=== PATIENT | male | born 1965 ===

== ENCOUNTER 2019-09-12 06:29 | Inpatient (IN) | payer OTHER ==
[~2019-09-12] VITALS: Ht 175.3 cm; Wt 77.1 kg
[2019-09-12] VITALS (10 sets, daily range): BP systolic 130–149; BP diastolic 74–92
[~2019-09-12 06:29] MED LIST: APAP/CODEINE1 TAB PO; PRILOSEC20 MG/CAP PO
--- NOTE | 2019-09-12 13:10 | NUR ---
PT ARRIVED TO FLOOR IN STABLE CONDITION, AWAKE AND ALERT ACOMPANIED BY NURSE AND CORRECTIONAL OFFICERS X2.
--- NOTE | 2019-09-12 16:00 | NUR ---
PT TOLERATING CLEAR LIQUIDS - WATER AND GATORADE -WELL. ADVANCED TO FULL LIQUID FOR DINNER. PT DENIES DISCOMFORT AT THIS TIME
--- NOTE | 2019-09-12 19:00 | NUR ---
REPORT RECEIVED FROM NICHELLE MAHMOOD. PT RESTING IN BED. NO S/S OF DISTRESS AT THIS TIME. SAFETY PRECAUTIONS IN PLACE. X2 CUSTODY OFFICERS AT BEDSIDE. WILL CONTINUE TO MONITOR.
--- NOTE | 2019-09-12 20:15 | NUR ---
PT RESTING IN BED ALERT AND ORIENTED. RESPIRATIONS EVEN AND UNLABORED ON RA, LUNGS SOUND CLEAR. PEDAL PULSES STRONG. SCD IN PLACE. PT REPORTS PAIN OF AN 8 OUT OF 10 ACHING IN HIS SHOUILDER, PT TO BE MEDICATED PER EMAR ORDERS. CUSTODY OFFICERS AT BEDSIDE. SAFETY PRCAUTIONS IN PLACE, WILL CONTINUE TO MONITOR.
--- NOTE | 2019-09-13 02:30 | NUR ---
PT RETURNING TO BED FROM BATHROOM, GATE STEADY. PT REPORTS HAVING PAIN OF 10/10 LEFT SHOULDER. PT PROVIDED WITH ICE PACKS. SAFETY PRECAUTIONS IN PLACE. WILL CONTINUE TO MONITOR
--- NOTE | 2019-09-13 04:29 | NUR ---
PT RESTING IN BED. RESPIRATIONS EVEN AND UNLABORED ON RA. NO S/S OF DISTRESS AT THIS TIME. SAFETY PRECAUTIONS IN PLACE. WILL CONTINUE TO MONITOR.
[2019-09-13 04:41] VITALS: BP 139/79
[2019-09-13 05:00] LABS: HEMATOCRIT 40.5 % (39.0-50.0); HEMOGLOBIN 13.5 g/dl (14.0-18.0); IMMATURE GRANULOCYTES 0.4 % (0.0-5.0); MEAN CELL VOLUME 90.2 fL CALC (80.0-100.0); MEAN CORPUSCULAR HGB 30.1 pG CALC (26.0-32.0); MEAN CORPUSCULAR HGB CONC 33.3 g/L CALC (32.0-36.0); NEUT# 11.66 thou/uL (1.82-7.42); RED BLOOD COUNT 4.49 mill/uL (4.70-6.10); RED CELL DISTRI WIDTH 12.7 % (11.5-15.5)
[2019-09-13 05:25] LABS: ANION GAP 12 (6-22 (CALC)); BUN 18 mg/dL (9-20); BUN/CREATININE RATIO 20 (12-20 (CALC)); CARBON DIOXIDE 28 mmol/l (22-30); CHLORIDE 101 mmol/l (95-108); CREATININE 0.9 mg/dL (0.7-1.3); GFR > 60 ML/MIN (>=60 (CALC)); GFR FOR AFR.AMER. > 60 ML/MIN (>=60 (CALC)); POTASSIUM 4.3 mmol/l (3.5-5.1); SODIUM 136 mmol/l (137-146)
[2019-09-13 08:22] VITALS: BP 143/85
--- NOTE | 2019-09-13 08:28 | NUR ---
ASSESSMENT DONE. PT IS A&O X3. PT STATED PAIN IN LEFT SHOULDER. MEDICATED PT WITH PERCOCET SEE EMAR. REPS EVEN AND UNLABORED. REMOVED DRESSING FROM LEFT SHOULDER AND SLING PER ORDER. PT DENIES ANY OTHER NEEDS AT THIS TIME. X2 GUARDS IN ROOM. CALL LIGHT IN REACH.
[2019-09-13 10:56] VITALS: BP 127/72
--- NOTE | 2019-09-13 12:29 | NUR ---
PT STATED PAIN IN LEFT SHOULDER 07/26. MEDICATED PT WITH PERCOCET SEE EMAR. ICE PACK APPLIED TO SHOULDER. X2 GUARDS IN ROOM. CALL LIGHT IN REACH.
--- NOTE | 2019-09-13 15:07 | NUR ---
PT STATED PAIN IN LEFT SHOULDER 07/26. MEDICATED PT WITH DILAUDID SEE EMAR. ICE PACK IN PLACE IN LEFT SHOULDER. PT ABLE TO MOVE HAND BUT NOT THE ARM. PT DENIES ANY OTHER NEEDS AT THIS TIME. X2 GUARDS IN ROOM. CALL LIGHT IN REACH.
[2019-09-13 15:15] VITALS: BP 133/77
[2019-09-13 18:45] VITALS: BP 148/85
--- NOTE | 2019-09-13 19:00 | NUR ---
REPORT RECIEVED FROM NICHELLE COOPER. PT RESTING IN BED. NO S/S OF DISTRESS AT THIS TIME. SAFETY PRECAUTIONS IN PLACE. WILL CONTINUE TO MONITOR.
--- NOTE | 2019-09-13 20:10 | NUR ---
PT IN BED ALERT AND ORIENTED. RESPIRATIONS EVEN AND UNLABORED ON RA. LUNGS SOUND CLEAR. PEDAL PULSES ARE STRONG. SKINS INTACT. INCISION TO LEFT SHOULDER CDI. PT REPORTS PAIN OF A 9/10 IN HIS SHOULDER, PT TO BE MEDICATED PER EMAR ORDERS. CUSTODY OFFICERS AT BEDSIDE. SAFETY PRECAUTIONS IN PLACE. WILL CONTINUE TO MONITOR.
--- NOTE | 2019-09-13 23:20 | NUR ---
PT. MEDICATED WITH ORDERED PRN PERCOCET@[id number] FOR LEFT SHOULDER PAIN;PRIMARY NURSE TO REASSESS. COFFEE PROVIDED. NEW IV STARTED TO LHAND X2 ATTEMPT; PT. TOLERATED WELL. IV SITE TO RFA REMOVED AND CATHETER TIP INTACT.
--- NOTE | 2019-09-14 00:35 | NUR ---
PT RESTING IN BED. RESPIRATIONS EVEN AND UNLABORED ON RA. NO S/S OF DISTRESS AT THIS TIME. SAFETY PRECAUTIONS IN PLACE. WILL CONTINUE TO MONITOR.
[2019-09-14 03:33] VITALS: BP 150/86
--- NOTE | 2019-09-14 04:08 | NUR ---
PT RESTING IN BED. RESPIRATIONS EVEN AND UNLABORED ON RA. NO S/S OF DISTRESS AT THIS TIME. SAFETY PRECAUTIONS IN PLACE. WILL CONTINUE TO MONITOR.
[2019-09-14 07:06] LABS: HEMATOCRIT 39.2 % (39.0-50.0); HEMOGLOBIN 12.9 g/dl (14.0-18.0); MEAN CELL VOLUME 91.2 fL CALC (80.0-100.0); MEAN CORPUSCULAR HGB CONC 32.9 g/L CALC (32.0-36.0); RED BLOOD COUNT 4.3 mill/uL (4.70-6.10); RED CELL DISTRI WIDTH 12.8 % (11.5-15.5)
[2019-09-14 07:37] VITALS: BP 142/72
--- NOTE | 2019-09-14 07:37 | NUR ---
ASSESSMENT IS COMPLETED: IV SITE IS FREE FROM REDNESS OR EDEMA. HR IS REG,PULSES ARE STRONG X4, ABD IS SOFT WITH ACTIVE BS. LEFT ARM INCISION IS CDI. 2 GUARDS ARE AT BEDSIDE. PT INQUIRING ABOUT PAIN MEDICATION. CONTINUE TO OSBERVE AND MONITOR.,
--- NOTE | 2019-09-14 11:05 | NUR ---
NURSE JAZMÍN CALLED FROM THE FACILITY. INQUIRING IF PT IS COMING BACK TODAY. INFORMED WENT TO SEE PT AND WANTED AN ICE PACK ON HIS SHOULDER. INFORMED OF THE LAB RESULTS. MRSA CONTACT IS FINAL NO MRSA
--- NOTE | 2019-09-14 11:45 | NUR ---
DR. LEON IN TO VISIT WITH PT.
--- NOTE | 2019-09-14 12:00 | NUR ---
PT IS SITTING IN BED WITH NO DISTRESS NOTED. IV SITE IS FREE FROM REDNESS OR EDMEA.
--- NOTE | 2019-09-14 13:55 | NUR ---
LEFT ANOTHER MESSAGE FOR THE NURSE TO CALL BACK,
--- NOTE | 2019-09-14 14:00 | NUR ---
IV SITE DISCONTINUED CATHETER INTACT. NO REDNESS OR EDEMA.
--- NOTE | 2019-09-14 14:27 | NUR ---
SPOKE WITH NURSE JAZMÍN RE; PT BEING DISCHARGED. CONTINUE TO OSBERVE AND MONITOR.
--- NOTE | 2019-09-14 14:40 | NUR ---
DISCHARGE INSTRUCTIONS GIVEN AND VERBALIZED UNDERSTANDING. WANTED THE SLING BACK ON FOR THE RIDE BACK . 2 GUARDS PRESENT. Discharge instructions given. Patient verbalizes understanding of same. Discharged in stable condition via Wheelchair to *Other with *Other. All belongings sent with pt.
== END 2019-09-14 14:39 | DRG 483 ==
LOC: MS2 06:29
PROVIDERS: Internal Medicine; Nurse Practitioner Family; ADMIT Orthopaedic Surgery; ATTEND Orthopaedic Surgery
PROC: 0RRK00Z Replacement of Left Shoulder Joint with Reverse Ball and Socket Synthetic Substitute, Open Approach (ICD-10-PCS; principal; 2019-09-12)
PROC: 0LS40ZZ Reposition Left Upper Arm Tendon, Open Approach (ICD-10-PCS; 2019-09-12)
PROC: 3E0T3BZ Introduction of Anesthetic Agent into Peripheral Nerves and Plexi, Percutaneous Approach (ICD-10-PCS; 2019-09-12)
DX: M19.012 Primary osteoarthritis, left shoulder (principal); M75.112 Incomplete rotator cuff tear or rupture of left shoulder, not specified as traumatic; S46.212A Strain of muscle, fascia and tendon of other parts of biceps, left arm, initial encounter; X58.XXXA Exposure to other specified factors, initial encounter; Z87.891 Personal history of nicotine dependence
CPT/HCPCS: J0131

== ENCOUNTER 2020-07-14 22:09 | Emergency (ER) | payer OTHER ==
[~2020-07-14] VITALS: Ht 175.3 cm; Wt 70.5 kg
[2020-07-14 23:23] LABS: IMMATURE GRANULOCYTES 0.4 % (0.0-5.0); MEAN CELL VOLUME 88.7 fL CALC (80.0-100.0); MEAN CORPUSCULAR HGB 29.1 pG CALC (26.0-32.0); MEAN CORPUSCULAR HGB CONC 32.8 g/dL CAL (32.0-36.0); NEUT# 15.13 thou/uL (1.82-7.42); RED BLOOD COUNT 5.22 mill/uL (4.70-6.10); RED CELL DISTRI WIDTH 12.9 % (11.5-15.5)
[2020-07-14 23:38] LABS: HEMATOCRIT 46.3 % (39.0-50.0); HEMOGLOBIN 15.2 g/dl (14.0-18.0)
[2020-07-14 23:44] LABS: URINE BILIRUBIN - DIPSTICK NEGATIVE (NEGATIVE); URINE BLOOD DIPSTICK NEGATIVE (NEGATIVE); URINE COLOR YELLOW; URINE GLUCOSE - DIPSTICK NEGATIVE (NEGATIVE); URINE KETONE NEGATIVE (NEGATIVE); URINE LEUK ESTERASE NEGATIVE (NEGATIVE); URINE NITRITE - DIPSTICK NEGATIVE (Negative); URINE PH 7.5 (4.5-8.0); URINE PROTEIN - DIPSTICK TRACE mg/dL (NEG-TRACE); URINE SPECIFIC GRAVITY 1.015; URINE UROBILINOGEN - DIPSTICK 0.2 E.U./dL (0.2)
[2020-07-14 23:47] LABS: ALBUMIN 4.8 g/dL (3.2-5.0); ALKALINE PHOSPHATASE 83 u/l (38-126); ANION GAP 15 (6-22 (CALC)); BILIRUBIN, TOTAL 0.5 mg/dL (0.0-1.4); BUN 15 mg/dL (9-20); BUN/CREATININE RATIO 14 (12-20 (CALC)); CARBON DIOXIDE 27 mmol/l (22-30); CHLORIDE 99 mmol/l (95-108); CREATININE 1.1 mg/dL (0.7-1.3); ETHYL ALCOHOL 0 mg/dl (0-30); GFR > 60 ML/MIN (>=60 (CALC)); GFR FOR AFR.AMER. > 60 ML/MIN (>=60 (CALC)); MAGNESIUM 1.6 mg/dL (1.6-2.3); POTASSIUM 4.4 mmol/l (3.5-5.1); SGOT/AST 20 u/l (17-59); SODIUM 136 mmol/l (137-146); TOTAL PROTEIN 7.6 g/dL (6.3-8.2)
[2020-07-15] MEDS ORDERED: AMOXICILLIN500 MG PO (01:01)
[2020-07-15 03:55] VITALS: BP 134/68
== END 2020-07-15 03:55 | disposition designated cancer center or children's hospital (05) | DRG 999 ==
LOC: ED 22:09
PROVIDERS: Family Medicine
DX: S02.842A Fracture of lateral orbital wall, left side, initial encounter for closed fracture (principal); S02.19XA Other fracture of base of skull, initial encounter for closed fracture; S02.40FA Zygomatic fracture, left side, initial encounter for closed fracture; S02.32XA Fracture of orbital floor, left side, initial encounter for closed fracture; S00.12XA Contusion of left eyelid and periocular area, initial encounter; T42.1X1A Poisoning by iminostilbenes, accidental (unintentional), initial encounter; W19.XXXA Unspecified fall, initial encounter; Y92.149 Unspecified place in prison as the place of occurrence of the external cause; Z11.59 Encounter for screening for other viral diseases